=== PATIENT | female | born 1930 | race Hispanic/Latino ===

== ENCOUNTER 2016-11-19 13:33 | Emergency (ER) | payer MEDICARE ==
[2016-11-19] MEDS ORDERED: TRIPLE ANTIBIOTIC TP ONE ×2 (17:38→17:42)
[2016-11-19] MEDS ORDERED: TYLENOL PO ONE (17:42)
[2016-11-19] MEDS ORDERED: BOOSTRIX IM ONE (17:58)
--- NOTE | 2016-11-19 18:03 | Emergency Department Report ---
ED Animal Bite HPI - General Chief Complaint: Animal Bite Stated Complaint: CAT BITE AND SCRATCH Time Seen by Provider: 11/19/16 17:41 Source: patient Mode of arrival: Ambulatory Limitations: No Limitations - History of Present Illness Initial Comments: 85-year-old female presents with complaint of cat scratch wound to the left calf region. Patient states that she was trying to break up a fight between her 2 cats at home both cats are domesticated house cats who have their vaccinations up to date as per patient and patient's family member son who is at bedside. She states that one of the cat scratched at her left calf region she was trying to break them up. Denies any other injuries minor amount of bleeding from cat scratch site. States she does not recall a bite but does recall a scratch. Patient and son assure me that cats have all of their vaccinations up-to-date including rabies MD Complaint: animal-related injury Onset/Timin -: hour(s) Location: other (left calf region) Left: Leg (small abrased area horizonal approximately 4cm mid calf region, 2 areas of small 1cm lacerations, adjacent) Animal: cat Description: household pet Mechanism: scratch Pain Description: sharp Severity scale (0 -10): 4 Context: animals fighting Associated Symptoms: bleeding Treatments Prior to Arrival: wound dressing(s) - Related Data Patient Tetanus UTD: No (patient states she has not had tetanus in over 10 years ) Home Medications Medication Instructions Recorded Confirmed Last Taken Amlodipine Besylate/Benazepril 5 mg PO DAILY 04/25/15 04/25/15 04/24/15 [Lotrel 5-10 mg] Calcitriol [Rocaltrol] 0.25 mg PO DAILY 04/25/15 04/25/15 04/24/15 Levothyroxine [Synthroid] 25 mcg PO DAILY 04/25/15 04/25/15 04/24/15 Temazepam [Restoril] 15 mg PO QHS PRN 04/25/15 04/25/15 04/23/15 Previous Rx's Medication Instructions Recorded Last Taken Type Ipratropium/Albuterol Sulfate 1 ampul IH TIDRT PRN #1 mo 04/26/15 Unknown Rx [Duoneb 0.5 mg-3 mg/3 ml Soln] Levofloxacin [Levaquin TAB] 750 mg PO QDAY #7 tablet 04/26/15 Unknown Rx Acetaminophen [Acetaminophen TAB] 500 mg PO Q6HR PRN #25 tablet 11/19/16 Unknown Rx Amoxicillin/K Clav Tab [Augmentin 1 tab PO Q12HR #10 tab 11/19/16 Unknown Rx 875 mg] Neomycn/Baci Zn/Pmyx Bs/Pramox 28 gm TP BID #1 oint...g. 11/19/16 Unknown Rx [Triple Antibioti-Pain Rlf Oint] Allergies Allergy/AdvReac Type Severity Reaction Status Date / Time Sulfa (Sulfonamide Allergy Hives Verified 04/24/15 23:07 Antibiotics) ED Review of Systems ROS: Stated complaint: CAT BITE AND SCRATCH Other details as noted in HPI Constitutional: denies: chills, fever Eyes: denies: eye pain, eye discharge, vision change ENT: denies: ear pain, throat pain Respiratory: denies: cough, shortness of breath, wheezing Cardiovascular: denies: chest pain, palpitations Endocrine: no symptoms reported Gastrointestinal: denies: abdominal pain, nausea, diarrhea Genitourinary: denies: urgency, dysuria, discharge Musculoskeletal: denies: back pain, joint swelling, arthralgia Skin: as per HPI. denies: rash, lesions Neurological: denies: headache, weakness, paresthesias Psychiatric: denies: anxiety, depression Hematological/Lymphatic: denies: easy bleeding, easy bruising ED Past Medical Hx - Past Medical History Hx Hypertension: Yes Additional medical history: Hypothyroidism - Social History Smoking Status: Never Smoker Substance Use Type: None - Medications Home Medications: Home Medications Medication Instructions Recorded Confirmed Last Taken Type Amlodipine Besylate/Benazepril 5 mg PO DAILY 04/25/15 04/25/15 04/24/15 History [Lotrel 5-10 mg] Calcitriol [Rocaltrol] 0.25 mg PO DAILY 04/25/15 04/25/15 04/24/15 History Levothyroxine [Synthroid] 25 mcg PO DAILY 04/25/15 04/25/15 04/24/15 History Temazepam [Restoril] 15 mg PO QHS PRN 04/25/15 04/25/15 04/23/15 History Ipratropium/Albuterol Sulfate 1 ampul IH TIDRT PRN #1 mo 04/26/15 Unknown Rx [Duoneb 0.5 mg-3 mg/3 ml Soln] Levofloxacin [Levaquin TAB] 750 mg PO QDAY #7 tablet 04/26/15 Unknown Rx Acetaminophen [Acetaminophen TAB] 500 mg PO Q6HR PRN #25 tablet 11/19/16 Unknown Rx Amoxicillin/K Clav Tab [Augmentin 1 tab PO Q12HR #10 tab 11/19/16 Unknown Rx 875 mg] Neomycn/Baci Zn/Pmyx Bs/Pramox 28 gm TP BID #1 oint...g. 11/19/16 Unknown Rx [Triple Antibioti-Pain Rlf Oint] ED Physical Exam - General Limitations: No Limitations General appearance: alert, in no apparent distress - Head Head exam: Present: atraumatic, normocephalic - Eye Eye exam: Present: normal appearance, PERRL, EOMI - ENT ENT exam: Present: mucous membranes moist - Neck Neck exam: Present: normal inspection - Respiratory Respiratory exam: Present: normal lung sounds bilaterally. Absent: respiratory distress - Cardiovascular Cardiovascular Exam: Present: regular rate, normal rhythm. Absent: systolic murmur, diastolic murmur, rubs, gallop - GI/Abdominal GI/Abdominal exam: Present: soft, normal bowel sounds - Extremities Exam Extremities exam: Present: normal inspection - Expanded Lower Extremity Exam Left Knee exam: Present: normal inspection, full ROM Lower Leg exam: Present: abrasion (multiple abrasions and small lacerations less than 1 cm to left mid calf posterior region, long superficial abrasion approximately 4 cm in length horizontal across left calf 2 small adjacent puncture wounds/small lacerations less than 1 cm each), laceration Ankle exam: Present: normal inspection, full ROM Foot/Toe exam: Present: normal inspection, full ROM - Back Exam Back exam: Present: normal inspection - Neurological Exam Neurological exam: Present: alert, oriented X3 - Psychiatric Psychiatric exam: Present: normal affect, normal mood - Skin Skin exam: Present: warm, dry, intact, normal color. Absent: rash ED Course Vital Signs 11/19/16 13:48 Temperature 97.5 F L Pulse Rate 116 H Respiratory 20 Rate Blood Pressure 170/94 O2 Sat by Pulse 95 Oximetry Critical care attestation.: If time is entered above; I have spent that time in minutes in the direct care of this critically ill patient, excluding procedure time. Critical Care Time: A/P: Cat scratch/possible bite to left lower extremity 1-area cleaned with iodine solution, triple antibiotic ointment placed over abrasion/tiny laceration/puncture wounds, Xeroform gauze strip placed over small laceration site less than half a centimeter in length. As there is a potential puncture wound here there is no indication for closure of this wound as this may lead to infection developing inside wound. I instructed patient on wound care provided her with gauze and Xeroform gauze and instructed her to change gauze at least twice a day and apply triple antibiotic ointment to wound sites. Patient's family member was at bedside when I initially dressed the wound and, he stated he would help her with this on a daily basis 2-Augmentin 875 twice a day 5 days as per [email or web address] 3-tetanus updated today as per recommendations on animal bites on [email or web address] 4-patient and family member stated that this is their house cat they wish to report the animal bite on their own I provided them with the number for [facility]- I advised patient to return if there is any pus drainage from site if it becomes erythematous if she develops fever or chills or difficulty walking on 1 ED Disposition Clinical Impression: Cat scratch of left lower leg Qualifiers: Encounter type: initial encounter Qualified Code(s): S80.812A - Abrasion, left lower leg, initial encounter; W55.03XA - Scratched by cat, initial encounter Disposition: DISCHARGED TO HOME OR SELFCARE Is pt being admited?: No Does the pt Need Aspirin: No Condition: Stable Instructions: Animal Bite (ED) Additional Instructions: [facility] [phone] Prescriptions: Acetaminophen [Acetaminophen TAB] 500 mg PO Q6HR PRN #25 tablet PRN Reason: Pain Amoxicillin/K Clav Tab [Augmentin 875 mg] 1 tab PO Q12HR #10 tab Neomycn/Baci Zn/Pmyx Bs/Pramox [Triple Antibioti-Pain Rlf Oint] 28 gm TP BID #1 oint...g. Referrals: PRIMARY CARE, [Primary Care Provider] - 3-5 Days CHERISE SLADE MD [Staff Physician] - 3-5 Days [facility] [Outside] - 3-5 Days Forms: Accompanied Note, Work/School Release Form(ED) Time of Disposition: 18:16
[2016-11-19 18:26] VITALS: BP 166/88
== END 2016-11-19 19:00 | disposition home or self-care (01) ==
LOC: ED 13:33
DX: S80.812A Abrasion, left lower leg, initial encounter (principal); I10 Essential (primary) hypertension; E03.9 Hypothyroidism, unspecified; Z88.2 Allergy status to sulfonamides; W55.03XA Scratched by cat, initial encounter; Y93.89 Activity, other specified; Y99.8 Other external cause status; Y92.89 Other specified places as the place of occurrence of the external cause
CPT/HCPCS: 90471; 90715; A6250